=== PATIENT | male | born 1980 ===

== ENCOUNTER 2018-03-15 22:08 | Emergency (ER) | payer SELFPAY ==
[2018-03-15 23:04] VITALS: BP 156/99
[2018-03-15 23:40] LABS: BUN/Creatinine Ratio 7; Blood Urea Nitrogen 4 mg/dL (9-20); Calcium 8.5 mg/dL (8.4-10.2); Hemolysis Index 2
[2018-03-15 23:45] LABS: Hematocrit 38.7 % (35.5-45.6); Hemoglobin 12.4 gm/dl (11.8-15.2); Mean Corpuscular HGB Conc 32 % (32-34); Mean Corpuscular Hemoglobin 28 pg (28-32); Mean Corpuscular Volume 88 fl (84-94); Platelet Count 275 K/mm3 (140-440); Red Blood Count 4.38 M/mm3 (3.65-5.03); Red Cell Distribution Width 14.1 % (13.2-15.2)
--- NOTE | 2018-03-16 00:07 | XRay Report ---
FINAL REPORT EXAM: XR FOOT 3+V LT HISTORY: wound with redness/swelling/pus of lt foot COMPARISON: None available. FINDINGS: Bony destruction of the 5th middle and distal phalanges and possibly the 5th proximal phalanx head. Findings are concerning for osteomyelitis. Diffuse sclerosis of the 1st proximal phalanx which may relate to sequelae of prior trauma or inflammation. There is a transverse nondisplaced fracture through the base of the 1st proximal phalanx which is suspected to be chronic. Remaining bony structures are intact. IMPRESSION: Bony erosive changes involving the 5th toe concerning for osteomyelitis. Transverse nondisplaced fracture of the base of the 1st proximal phalanx suspected to be chronic.
== END 2018-03-16 03:30 | disposition left against medical advice (07) ==
LOC: ED 22:08
DX: M79.672 Pain in left foot (principal); Z53.21 Procedure and treatment not carried out due to patient leaving prior to being seen by health care provider
CPT/HCPCS: 36415; 80048; 85027; 86140